=== PATIENT | male | born 1985 | race Caucasian/White ===

== ENCOUNTER 2021-12-01 22:41 | Emergency (ER) | payer SELFPAY ==
[~2021-12-01] VITALS: Ht 175.3 cm; Wt 158.8 kg
[2021-12-01 23:40] VITALS: BP 153/103
--- NOTE | 2021-12-01 23:40 | NUR ---
BIB FOR WOKE UP WITH L FOOT PAIN 3 DAYS AGO. - TRAUMA. PT A/OX4. TOLERATING R/A WELL WITH NO SOB.
--- NOTE | 2021-12-02 | NUR ---
AUTOCUTTER AT PT'S BEDSIDE
[2021-12-02] MEDS ORDERED: NAPR-1192 PO (01:06)
--- NOTE | 2021-12-02 01:21 | NUR ---
ORTHO SHOE APPLIED TO LEFT FOOT.
--- NOTE | 2021-12-02 01:22 | NUR ---
Patient discharged to home in stable condition. RX Written and verbal after care instructions given. Patient verbalizes understanding of instruction.
[2021-12-02] MEDS ORDERED: KETOROLAC TROMETHAMINE INJ 60 MG/2 ML VIAL IM ONE (01:30)
[2021-12-02] MEDS ORDERED: KETOROLAC TROMETHAMINE 15 MG/ML VIAL ONE (01:32)
== END 2021-12-02 01:41 | disposition home or self-care (01) ==
LOC: ER 22:43
DX: S93.602A Unspecified sprain of left foot, initial encounter (principal); X58.XXXA Exposure to other specified factors, initial encounter; Y93.89 Activity, other specified; Y92.89 Other specified places as the place of occurrence of the external cause; Y99.8 Other external cause status
CPT/HCPCS: 99283; 73630; 96372; J1885